=== PATIENT | female | born 1985 | race Caucasian/White ===

== ENCOUNTER 2024-11-05 09:55 | Emergency (ER) | payer OTHER, SELFPAY ==
[2024-11-05 10:04] VITALS: BP 160/113
--- NOTE | 2024-11-05 10:19 | ED.GENMED ---
ED Provider Triage
<Alcira Renae COMMUNITY HEALTH AGENT - Last Filed: 11/05/24 10:21>
-
Patient seen by provider in Triage?: Seen in Triage
Attestation: A medical screening examination has been initiated by a qualified medical provider. Based on the assessment performed at this time, it has been determined that an emergent medical condition may exist and the patient has been informed
that further medical evaluation and possible additional diagnostic testing may be needed.
HPI: Patient is here for dizziness and high blood pressure. Blood pressure was 134/97 at home. Denies headache, nausea vomiting or diarrhea. Breathing denies chest pain or trouble breathing.
GENERAL: Alert , in no apparent distress
EYE: No visual abnormalities. Pain medicine
ENT: No visible abnormalities.
LUNGS: No acute respiratory distress
NEUROLOGICAL: Alert and oriented
SKIN: Skin intact. No visible changes.
MUSCULOSKELETAL: Moving extremities normally
PSYCH: Normal and appropriate interaction.
This is a medical evaluation conducted in person to initiate diagnostic evaluation and provide initial therapeutics. Please see further documentation by the treating clinician.
History of Present Illness
<Alcira Renae NP - Last Filed: 11/05/24 10:21>
General
Chief Complaint: Dizziness
Time Seen by Provider: 11/05/24 13:01
<Sarah Tran PA-C - Last Filed: 11/05/24 14:52>
General
Source: patient
Exam Limitations: none
Nursing documentation reviewed up to this point in time: agreed with
History of Present Illness
History of Present Illness:
pt is a 39 y/o F with h/o HTN post (jun 2024)
on nifedipine ER 30 mg
ran out 1 mo ago and is waiting to see new PCP 12/03
she had refill by telemedicine of her med but ran out of that for 3 weeks
has had bps 120/90s
1 week ago stopped caffeine to see if this helped her blood pressures.
Patient says this morning after she got up from sleep around 7 AM she felt suddenly like the room was spinning slightly. It was not severe and did not cause her to fall over or get nauseated. She says it lasted about 30 seconds before it resolved.
She checked her blood pressure and it was higher than usual, 130s over 90s. She did a telehealth appointment and they recommended she go to urgent care. She went to urgent care and her blood pressure was 140s over 90s and they said with symptoms
they would recommend she come to the hospital. Patient now does not feel dizzy any longer, she has no headache, vision changes, neck pain, chest pain, shortness of breath, nausea or vomiting, weakness etc. But she is anxious about her blood
pressure being elevated. She has not felt ill or sick recently.
Patient said her last menstrual was 1 month ago. She is breast-feeding.
Past History
<Sarah Tran PA-C - Last Filed: 11/05/24 14:52>
Past History
ED Past Medical History: Other ( hypertension)
ED Past Surgical History: None
Social History
Tobacco: Non-smoker
Alcohol: None
Drug: None
Personal:
Review of Systems
<HUONG Chavarria Last Filed: 11/05/24 14:52>
Review of Systems
Allergies reviewed?: Yes
All Other Systems: Not applicable
Phy Exam
<HUONG Chavarria Last Filed: 11/05/24 14:52>
Physical Exam
Physical Exam:
GENERAL: Alert , in no apparent distress
HEAD: NCAT
EYE: pupils equal and reactive, no nystagmus, no photophobia
NECK: Supple,full rom, nontender
ENT: o/p clr, mmm.
CARDIAC: Regular rate and rhythm . no edema
LUNGS: Clear breath sounds bilaterally, no acute respiratory distress, no wheezes/rales/rhonchi
ABDOMEN: Soft, without focal tenderness, no r/g, no cvat
NEUROLOGICAL: Alert and orientedx 4, cn intact, no facial asymmetry, 5/5 strength in UE/LE, sensation intact, romberg neg, ambulates without assistance, neg pronator drift
SKIN: Warm and dry, skin intact.
MUSCULOSKELETAL: No edema, well perfused.
PSYCH: Anxious mildly
Course
<Alcira Renae, COMMUNITY HEALTH AGENT - Last Filed: 11/05/24 10:21>
Orders/Labs/Results
Orders:
Orders
11/05/24 10:08
Electrocardiogram (*1) Urgent
Reason for Study: Vertigo / Dizzy
EKG- Treatment ONCE
Test Result ONCE
11/05/24 10:19
Complete Blood Count/With Diff Urgent
Comprehensive Metabolic Panel Urgent
HCG, Serum Qualitative Screen Urgent
11/05/24 13:17
Orthostatic VS- Treatment ONCE
11/05/24 13:23
NIFEdipine EXTENDED RELEASE [Procardia Xl (Extended Release)] 30 mg PO NOW STA
11/05/24 13:26
Amlodipine [Norvasc] 5 mg PO NOW STA
11/05/24 13:33
COVID-19 Antigen Urgent
Source: Nasal Swab
Troponin I Urgent
Abnormal Lab Results
11/05/24
10:19
WBC 4.5 L 10^3/uL
(4.8-10.8)
Albumin 5.1 H g/dl
(3.5-5.0)
11/05/24 10:19
11/05/24 10:19
Vital Signs
Initial and Last Documented VS:
Initial Vital Signs
Temp Pulse Resp BP Pulse Ox
36.7 C 74 16 160/113 98
11/05/24 10:04 11/05/24 10:04 11/05/24 10:04 11/05/24 10:04 11/05/24 10:04
Last Documented Vital Signs
Temp Pulse Resp BP Pulse Ox
36.7 C 68 16 146/105 100
11/05/24 10:04 11/05/24 14:30 11/05/24 14:30 11/05/24 14:30 11/05/24 14:30
<Sarah Tran PA-C - Last Filed: 11/05/24 14:52>
Orders/Labs/Results
Orders:
Orders
11/05/24 10:08
Electrocardiogram (*1) Urgent
Reason for Study: Vertigo / Dizzy
EKG- Treatment ONCE
Test Result ONCE
11/05/24 10:19
Complete Blood Count/With Diff Urgent
Comprehensive Metabolic Panel Urgent
HCG, Serum Qualitative Screen Urgent
11/05/24 13:17
Orthostatic VS- Treatment ONCE
11/05/24 13:23
NIFEdipine EXTENDED RELEASE [Procardia Xl (Extended Release)] 30 mg PO NOW STA
11/05/24 13:26
Amlodipine [Norvasc] 5 mg PO NOW STA
11/05/24 13:33
COVID-19 Antigen Urgent
Source: Nasal Swab
Troponin I Urgent
Abnormal Lab Results
11/05/24
10:19
WBC 4.5 L 10^3/uL
(4.8-10.8)
Albumin 5.1 H g/dl
(3.5-5.0)
11/05/24 10:19
11/05/24 10:19
Vital Signs
Initial and Last Documented VS:
Initial Vital Signs
Temp Pulse Resp BP Pulse Ox
36.7 C 74 16 160/113 98
11/05/24 10:04 11/05/24 10:04 11/05/24 10:04 11/05/24 10:04 11/05/24 10:04
Last Documented Vital Signs
Temp Pulse Resp BP Pulse Ox
36.7 C 68 16 146/105 100
11/05/24 10:04 11/05/24 14:30 11/05/24 14:30 11/05/24 14:30 11/05/24 14:30
<Sarah Tran PA-C - Last Filed: 11/05/24 14:52>
MDM/Problems Addressed
Differential Diagnosis Includes:
Hypertension, anxiety, COVID, near syncope
MDM/Problems Addressed:
Patient is a 39-year-old female with history of hypertension after having her baby in June. She never was fully preeclamptic. Patient was treated with nifedipine 30 mg ER daily. Her OB refilled this for 2 months but
then would no longer refill it and wanted her to see a family doctor. Patient called to make a family doctor appointment but could not get 1 until November 2024. She thus had a telehealth appointment and got a refill which ran out about 3 weeks
ago. She has been monitoring her blood pressures which have been anywhere from the 120s to 130s over 90s.
Patient said about a week ago she decided to quit caffeine because she thought this was making her blood pressure worse. This morning suddenly she had a episode of spinning dizziness that was not severe but lasted about 30 seconds and subsequently
she checked her blood pressures which were elevated at home but in the 130/90 range. She had a telehealth appointment and then an urgent care appointment and with the each check of her blood pressure it has gone up. She is now anxious. She is not
having any dizziness, headache, vision changes, chest pain, shortness of breath, vomiting, syncope. Her blood pressures here are 160/100 at maximum. Neurologically she is completely intact.
She is hCG negative. Her EKG does show nonspecific ST flattening in V3 through V 6 without an old EKG to compare to. She is normal sinus rhythm in the 60s. Case discussed with ED attending. Given the patient's abnormal EKG without a comparison I
did send a troponin which was negative. Her orthostatics are negative. Blood pressure is 140/100 on recheck.
The troponin was checked more than 6 hours from the onset of her symptoms this morning. Since then she has been asymptomatic. It seems like mostly she is quite anxious right now. Given the fact that the patient has had some elevated blood
pressures at home on the nifedipine she would prefer to try something else. She is breast-feeding, not sure about a subsequent in the future so I will just start her on 5 mg of amlodipine. I recommend that she continue to monitor her
blood pressures and avoid salt.
Return precautions given
<Sarah Tran PA-C - Last Filed: 11/05/24 14:52>
*Critical Care Note
Total Time (30-74mins, 75-104mins- exclusive of procedures): Not Applicable
ED Attending Note
<Alcira Renae NP - Last Filed: 11/05/24 10:21>
-
Portions of this chart may have been created with voice recognition software.� Occasional wrong word or��sound alike� substitutions may have occurred due to the inherent limitations of voice recognition software.
Discharge Plan
Departure
Patient Disposition: Home (Routine Discharge)
Date of Disposition: 11/05/24
Time of Disposition: 14:47
Condition: Fair
Covid-19: Not Applicable
Discharge Problem:
Hypertension
Instructions: High Blood Pressure (DC)
Prescriptions:
New
amlodipine 5 mg tablet
5 mg PO DAILY Qty: 30 0RF
Referrals:
Albino Navarro, [Family Provider] - Follow up in 1 week
Activity Restrictions/Additional Instructions:
YOUR BLOOD PRESSURES ARE ELEVATED BUT YOUR BLOOD WORK IS REASSURING
YOU HAD A SUBTLE EKG ABNORMALITY BUT NO SIGNS OF HEART ATTACK
IT IS IMPORTANT TO MONITOR YOUR BLOOD PRESSURE, JUST ONCE A DAY IS REASONABLE AND FOLLOW UP WITH THE PRIMARY DOCTOR NEXT MONTH OR TRY TO MOVE UP YOUR APPOINTMENT
TAKE AMLODIPINE 5 MG ONCE A DAY
THIS MEDICATION USUALLY IS TOLERATED WELL; SOMETIMES IT CAUSES SOME SWELLING IN THE LEGS BUT USUALLY NOT.
RETURN FOR: SEVERE SUDDEN HEADACHE, VISION CHANGES, CHEST PAIN, SHORTNESS OF BREATH, PASSING OUT, OR ANY COCNERNS.
TRY TO AVOID SALT
Interventions
Interventions:
*Risk Screen - Suicide Last Done: 11/05/24 10:04
*General Assessment Last Done: 11/05/24 12:25
*Neglect/Abuse Screening Last Done: 11/05/24 12:25
*ED COVID-19 Vaccine History Last Done: 11/05/24 12:25
ED- Pulmonary Assessment Last Done: 11/05/24 12:25
ED- Neurological Assessment Last Done: 11/05/24 12:25
ED- Cardiac Assessment Last Done: 11/05/24 12:25
ED Swallowing Screen Last Done: 11/05/24 12:25
Discharge Date and Time
Print Language: [id number]
[2024-11-05 10:29] LABS: % Basophils 0.9 % (0-2); % Eosinophils 2.7 % (0-6); % Immature Granulocytes 0.2 % (0-0.5); % Lymphocytes 38.3 % (20.5-51.1); % Monocytes 8.2 % (1.7-9.3); % Neutrophils 49.7 % (42.2-75.2); Absolute Eosinophils 0.1 10^3/uL (0-0.7); Absolute Lymphocytes 1.7 10^3/uL (1.2-3.4); Absolute Monocytes 0.4 10^3/uL (0.1-0.6); Absolute Neutrophils 2.3 10^3/uL (1.4-6.5); Hemoglobin 13.1 g/dL (12.0-16.0); Mean Corp Hgb Conc. 34.5 g/dL (33.0-37.0); Mean Corpuscular Hgb 30.5 pg (27.0-31.0); Mean Corpuscular Volume 88.4 fL (81.0-99.0); Mean Platelet Volume 9.4 fL (7.4-10.4); Nucleated Red Blood Cells % 0 %; Platelet Count 227 10^3/uL (130-400); Red Cell Dist. Width 12.4 % (11.5-14.5); White Blood Cell Count 4.5 10^3/uL (4.8-10.8)
[2024-11-05 10:46] LABS: HCG, Serum Qualitative Screen Negative
[2024-11-05 11:17] LABS: ALT (SGPT) 18 U/L (0-35); AST (SGOT) 23 U/L (14-36); Albumin 5.1 g/dl (3.5-5.0); Alkaline Phosphatase 60 U/L (38-126); Blood Urea Nitrogen 16 mg/dl (7-17); Carbon Dioxide 28 mmol/L (22-30); Chloride 102 mmol/L (98-107); Glucose 92 mg/dl (70-99); Potassium 4.6 mmol/L (3.5-5.1); Sodium 140 mmol/L (135-145); Total Bilirubin 0.5 mg/dl (0.2-1.3); Total Protein 7.9 g/dl (6.3-8.2); eGFR > 60.00
[2024-11-05 12:40] VITALS: BP 155/105
[2024-11-05 13:35] VITALS: BP 139/107; BP 148/88; BP 155/98; PULSE 65; PULSE 66; PULSE 71
[2024-11-05] MEDS: NORVASC 5 MG PO (13:37)
[2024-11-05 14:09] LABS: Troponin I < 0.012 ng/ml
[2024-11-05 14:30] VITALS: BP 146/105
[2024-11-05 14:30] LABS: COVID-19 Antigen Negative (Negative)
== END 2024-11-05 15:06 | disposition home or self-care (01) ==
LOC: EMR 09:55
PROVIDERS: Emergency Medicine; Physician Assistant; EMERGENCY PHYSICIAN Student in an Organized Health Care Education/Training Program; FAMILY PHYSICIAN Family Medicine
DX: O16.5 Unspecified maternal hypertension, complicating the puerperium (principal); R42 Dizziness and giddiness; F41.9 Anxiety disorder, unspecified; Z11.52 Encounter for screening for COVID-19; Z88.0 Allergy status to penicillin; Z88.2 Allergy status to sulfonamides
CPT/HCPCS: 99283; 80053; 84484; 84703; 85025; 87811; 93005

== ENCOUNTER → 2025-03-07 14:52 | Outpatient (REF) | payer OTHER, SELFPAY | LOC: HWRCS 14:52 | PROVIDERS: ATTENDING PHYSICIAN Internal Medicine Cardiovascular Disease; FAMILY PHYSICIAN Nurse Practitioner Family | DX: I10 Essential (primary) hypertension (principal) | CPT/HCPCS: 93306 ==